=== PATIENT | female | born 1980 | race Caucasian/White ===

== ENCOUNTER 2023-01-29 20:05 | Emergency (ER) | payer SELFPAY ==
[~2023-01-29] VITALS: Ht 175.3 cm; Wt 93.9 kg
[2023-01-29 20:21] VITALS: BP 132/84; PULSE 78; RESP 18; TEMP 97.4; O2SAT 99
[2023-01-29] MEDS ORDERED: KETOROLAC 30 MG/ML VIAL IM ONE (21:00)
[2023-01-29] MEDS ORDERED: ACET-10509 PO (21:12)
[2023-01-29] MEDS ORDERED: IBUP-2213 PO (21:12)
[2023-01-29 21:42] VITALS: BP 132/84; PULSE 78; RESP 18; TEMP 97.4; O2SAT 99
== END 2023-01-29 21:42 | disposition home or self-care (01) ==
LOC: MED 20:05
DX: S60.041A Contusion of right ring finger without damage to nail, initial encounter (principal); X58.XXXA Exposure to other specified factors, initial encounter; Y93.89 Activity, other specified; Y92.89 Other specified places as the place of occurrence of the external cause; Y99.8 Other external cause status
CPT/HCPCS: 73130; 96372; 99283; J1885